=== PATIENT | male | born 1990 | race Caucasian/White ===

== ENCOUNTER 2018-05-09 10:58 | Emergency (ER) | payer BC, OTHER ==
[~2018-05-09] VITALS: Ht 182.9 cm; Wt 136.1 kg
[2018-05-09 11:09] VITALS: BP 141/71
--- NOTE | 2018-05-09 12:12 | NUR ---
PT. WHEELCHAIRED BY TECH TO BED # 2
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
[2018-05-09] MEDS ORDERED: IBUPROFEN 400 MG TAB PO ONE (12:35)
[2018-05-09] MEDS ORDERED: LIDOCAINE 1% 500 MG/50 ML VIAL INJ SCH (12:45)
[2018-05-09] MEDS ORDERED: BUPIVACAINE-MPF 0.75% 10 ML VIAL INJ ONE (12:45)
[2018-05-09] MEDS ORDERED: LIDOCAINE MPF 1% 5mL VIAL ONE (12:56)
--- NOTE | 2018-05-09 13:00 | NUR ---
PT. RESTING COMFORTABLY IN BED, RR EVEN AND UNLABORED. WILL CONTINUE TO MONITOR. VSS. FAMILY MEMBER AT BEDSIDE
[2018-05-09] MEDS ORDERED: BUPIVACAINE-MPF 0.25% 30 ML VIAL INJ SCH (13:15)
[2018-05-09 14:00] VITALS: BP 136/74
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
== END 2018-05-09 14:00 | disposition home or self-care (01) ==
LOC: MED 10:58
DX: S90.111A Contusion of right great toe without damage to nail, initial encounter (principal); M79.674 Pain in right toe(s); W23.0XXA Caught, crushed, jammed, or pinched between moving objects, initial encounter; Y93.89 Activity, other specified; Y92.89 Other specified places as the place of occurrence of the external cause; Y99.8 Other external cause status
CPT/HCPCS: 11740; 73630; 99283; J2001; J3490